=== PATIENT | male | born 1980 | race Caucasian/White ===

== ENCOUNTER 2020-10-08 17:10 | Inpatient (IN) | payer BC ==
[~2020-10-08] VITALS: Ht 182.9 cm; Wt 84.4 kg
[~2020-10-08 17:10] MED LIST: ALBU8.5H8 IH
[2020-10-08] MEDS ORDERED: GLUCAGON,HUMAN RECOMBINANT 1 MG/VIAL VIAL IV ONE (17:30)
[2020-10-08] MEDS ORDERED: GLUCAGON,HUMAN RECOMBINANT 1 MG/VIAL VIAL ONE (17:32)
--- NOTE | 2020-10-08 17:45 | NUR ---
BIBS FROM HOME TO ER BED 12. AAOX4. NOT IN RESP DISTRESS, BREATHING EVEN AND UNLABORED. AMBULATORY. CAME IN FOR THROAT DISCOMFORT AND DIFFICULT TO SWALLOW S/P A PIECE OF STEAK STUCK IN HIS THROAT SINCE LAST NIGHT. PT IS SATTING 98% ON RA. PROVIDER WAS AT THE BEDSIDE FOR EVAL. ORDERS RECEIVED, NOTED AND CARRIED OUT. IV LINE ESTABLISHED ON R AC 18G. MEDICATED ORDERED. PT IS GOING TO [facility]
[2020-10-08] MEDS ORDERED: ALBU18HF2 INH (18:22)
[2020-10-08] MEDS ORDERED: IV NS 0.9% 1,000 ML BAG IV ONE (18:30)
[2020-10-08] MEDS ORDERED: LORAZEPAM INJ 2 MG/ML VIAL IV ONE (18:30)
[2020-10-08 18:34] LABS: BASOPHILS # (AUTO) 0.1 /CMM (0.0-0.2); BASOPHILS % (AUTO) 0.7 % (0.0-2.0); EOSINOPHILS % (AUTO) 1.6 % (0.0-6.0); HEMATOCRIT 48 % (39-51); HEMOGLOBIN 15.8 g/dL (13.5-17.5); LYMPHOCYTES # (AUTO) 2.1 /CMM (0.8-4.8); LYMPHOCYTES % (AUTO) 15.7 % (20.0-44.0); MEAN CORPUSCULAR HGB CONC 33 g/dl (31.0-36.0); MEAN CORPUSCULAR VOLUME 92 fL (80-96); MONOCYTES # (AUTO) 0.9 /CMM (0.1-1.30); MONOCYTES % (AUTO) 6.5 % (2.0-12.0); NEUTROPHILS % (AUTO) 75.5 % (43.0-81.0); PLATELET COUNT (AUTO) 339 /CMM (150-450); RED BLOOD CELL COUNT(AUTO) 5.21 MIL/uL (4.5-6.0); WHITE BLOOD COUNT (AUTO) 13.3 K/uL (4.3-11.0)
--- NOTE | 2020-10-08 18:37 | NUR ---
CALLED [facility] CHRISTINA BURCH.
[2020-10-08] MEDS ORDERED: LORAZEPAM INJ 2 MG/ML VIAL ONE (18:40)
--- NOTE | 2020-10-08 18:40 | NUR ---
CALLED NURSING SUP FOR TELE BED.
[2020-10-08 18:42] LABS: CALCIUM, SERUM 8.8 mg/dL (8.5-10.1); CREATININE 1.1 mg/dL (0.6-1.3); POTASSIUM 4.2 mmol/L (3.5-5.1)
[2020-10-08] MEDS ORDERED: ALBUTEROL SULFATE INH 18 GM HFA.AER.AD IH PRN (19:00)
--- NOTE | 2020-10-08 19:37 | NUR ---
CALL FROM LAB. COVID NEGATIVE.
[2020-10-08 20:00] VITALS: BP 111/69
--- NOTE | 2020-10-08 20:22 | NUR ---
REPORT GIVEN TO DANIELA ERICKSON FOR [facility]
--- NOTE | 2020-10-08 20:29 | NUR ---
PT TRANSFERRED PER [facility] PROTOCOL
--- NOTE | 2020-10-08 20:30 | NUR ---
ADMISSION NOTE PT ADMITTED FOR FOREIGN BODY IN ESOPHAGUS. PT AXOX4 AMBULATORY WITH STEADY GAIT. PT ORIENTED TO ROOM. CALL LIGHT PLACED WITHIN REACH. VERBALIZZED UNDERSTANDING ON HOW TO USE. PT SPITTING UP SALIVA HE STATES HE CANT SWALLOW IT. REPORTS FEELING PRESSURE TO SUBSTERNAL ABOVE ABD. STATES HE CAN NOT EAT OR DRINK ANYTHING. AWAITING ADMISSION ORDERS. VS WNL. VERBALIZED UNDERSTANDING TO CALL FOR ASSISTANCE IF NEEDED.
[2020-10-08] MEDS ORDERED: ALBUTEROL FS 2.5 MG/0.5 ML VIAL.NEB NEB PRN (21:00)
[2020-10-09] VITALS: BP 123/67
[2020-10-09] MEDS ORDERED: MAGNESIUM HYDROXIDE 30 ML UDC PO PRN (01:00)
[2020-10-09] MEDS ORDERED: IV NS 0.9% 1,000 ML IV PRN (01:00)
[2020-10-09] MEDS ORDERED: ZOLPIDEM TARTRATE 5 MG TABLET PO PRN (01:00)
[2020-10-09] MEDS ORDERED: MAG HYDROX/AL HYDROX/SIMETH 30 ML UDC PO PRN (01:00)
[2020-10-09] MEDS ORDERED: HYDROCODONE/APAP 5/325MG TABLET PO PRN (01:00)
[2020-10-09] MEDS ORDERED: ACETAMINOPHEN 325 MG TABLET PO PRN (01:00)
[2020-10-09] MEDS ORDERED: ONDANSETRON HCL/PF 4 MG/2 ML VIAL IVP PRN (01:00)
[2020-10-09] MEDS ORDERED: Z GUARD REMEDY 2 OZ OINT TP PRN (01:00)
[2020-10-09 04:00] VITALS: BP 134/76
--- NOTE | 2020-10-09 06:24 | NUR ---
RN PM CLOSING NOTE PT IN BED WITH EYES CLOSED. RESP EVEN AND UNLABORED. BED DOWN LOCKED. PT ON IVF INFUSING WITH NO S/S OF INFILTRATION. PT NPO; PLAN TO HAVE SCHEDULED EGD TODAY AT 11 AM WITH HOLLIE WILL ENDORSE TO ONCOMING SHIFT. WILL CONT TO MONITOR SR PER TELE MONITOR.
--- NOTE | 2020-10-09 07:30 | NUR ---
NPO THIS AM.IV INFUSING.PLANS FOR SURGERY TODAY.STATES A LITTLE DISCOMFORT.
[2020-10-09 08:03] VITALS: BP 124/77
--- NOTE | 2020-10-09 10:05 | NUR ---
SURGERY CALLED AND MADE AWARE BGL ONLY 73,DUE TO BEING NPO.
[2020-10-09] MEDS ORDERED: ANESTHESIA TRAY IN PYXIS 1 EA TRAY MC ONE (10:16)
--- NOTE | 2020-10-09 10:30 | NUR ---
LEFT FOR SURGERY VIA BED.
[2020-10-09] MEDS ORDERED: MIDAZOLAM HCL 2 MG/2ML VIAL ONE (10:57)
--- NOTE | 2020-10-09 11:40 | NUR ---
RETURNED TO RM. VIA BED.VS STABLE.HOB ELEVATED.INSTRUCTED NOT TO GET OOB BY SELF DUE TO ANESTHESIA.CALL WHITE WITHIN REACH.
--- NOTE | 2020-10-09 13:30 | NUR ---
UP TO BATHRM.VOIDED.EATING REGULAR LUNCH.RN CALLED DR. BROWNE AND GOT OK FOR DISCHARGE IF ENROLLMENT COORDINATOR OK'D.
--- NOTE | 2020-10-09 14:30 | NUR ---
SE VS ON GRAPHIC INSIDE CHART.
--- NOTE | 2020-10-09 15:20 | NUR ---
DR. LEVY HERE.DC ORDER WRITTEN.GIVEN RX FOR PROTONIX.HEP LOCK OUT. PT. AWARE TO CALL [facility] FOR APPT.GIVEN ALL DC INSTRUCTIONS.TAKEN TO LOBBY VIA W/C. HERE TO TRANSPORT HOME.
== END 2020-10-09 15:20 | disposition home or self-care (01) | DRG 392 ==
LOC: ER 17:18 → TELE 20:04
PROVIDERS: ADMIT Internal Medicine; ATTEND Internal Medicine
PROC: 0DB58ZX Excision of Esophagus, Via Natural or Artificial Opening Endoscopic, Diagnostic (ICD-10-PCS; principal; 2020-10-09)
DX: K20.0 Eosinophilic esophagitis (principal); T18.128A Food in esophagus causing other injury, initial encounter; X58.XXXA Exposure to other specified factors, initial encounter; J45.909 Unspecified asthma, uncomplicated; R13.10 Dysphagia, unspecified; Y93.9 Activity, unspecified; Y92.009 Unspecified place in unspecified non-institutional (private) residence as the place of occurrence of the external cause
CPT/HCPCS: 36415; 71045-TC; 71250-TC; 80048-TC; 82962-TC; 85025-TC; 85730-TC; 87081-TC; 88305-TC; 88313-TC; C9803; G0378; J1610; J2060; J2250; J7030